=== PATIENT | female | born 1990 | race Two or more races ===

== ENCOUNTER 2020-06-06 13:27 | Emergency (ER) | payer BC, SELFPAY ==
[2020-06-06 13:33] VITALS: BP 118/70; PULSE 120; RESP 18; TEMP 36.4; O2SAT 98; BMI 30.1
--- NOTE | 2020-06-06 16:15 | ED_ITS ---
HPI - Nausea/Vomiting/Diarrhea General Chief complaint: Nausea/Vomiting/Diarrhea Stated complaint: VOMITING Time Seen by Provider: 06/06/20 16:13 Source: patient Mode of arrival: ambulatory Limitations: no limitations History of Present Illness HPI Narrative: Patient's history of cyclical vomiting syndrome usually get this episodes every 2-3 months denies any current use of marijuana been vomiting for last 4 weeks off and on unable to take anything by mouth complaining of diffuse abdominal pain as usual increased anxiety MD elicited complaint: nausea and vomiting Pertinent past history: cyclical vomiting Onset (ago): week(s) (4) Description of vomiting: watery Associated nausea: Yes Associated abdominal pain: Yes Location of pain: diffuse Radiation: diffuse Related Data Previous Rx's Medication Instructions Recorded lorazepam [Ativan] 1 mg PO BID PRN #14 tab 06/06/20 ondansetron 4 mg PO Q6-8H PRN #14 tab 06/06/20 Allergies Allergy/AdvReac Type Severity Reaction Status Date / Time No Known Allergies Allergy Unverified 01/15/20 18:53 [No Known Allergies*] Review of Systems Review of Systems: Yes all other systems are reviewed and are negative Gastrointestinal: Gastrointestinal: Reports nausea PMFSH Past Medical History Medical History Cyclical vomiting Social History Social History Alcohol intake: unknown Smoking Status: Never smoker Use of substances other than those prescribed or required for medical reasons: Unknown Advance Directives: No Advance Directives Information Provided: No Physical Exam Vital Signs: Vital Signs: Last Vital Signs Temp 99 F 06/06/20 19:08 Pulse 106 H 06/06/20 19:08 Resp 16 06/06/20 19:08 BP 105/67 06/06/20 19:08 Pulse Ox 99 06/06/20 19:08 Body Mass Index 30.1 Appearance: Alert. Oriented X3. No acute distress. Eyes: Pupils equal, round and reactive to light. ENT: Pharynx normal. Neck: Normal inspection. Neck supple. CVS: Normal heart rate and rhythm. Pulses normal. Respiratory: No respiratory distress. Breath sounds normal. Abdomen: Soft and nontender. Bowel sounds are present, no mass palpable, no CVA tenderness Skin: Skin warm and dry. Normal skin color. Normal skin turgor. Extremities: No lower extremity edema. Neuro: Oriented X 3. No motor deficit. No sensory deficit. MDM - Nausea/Vomiting/Diarrhea MDM Narrative Medical decision making narrative: Patient has cyclic vomiting syndrome with frequent episodes similar to today feeling much better after Ativan and after IV fluids , patient has leukocytosis secondary to fluid loss/leukemoid reaction no focal tenderness in abdomen will discharge patient home on Ativan and Zofran patient taking p.o. fluids now feeling better Medical Records Attestation: I reviewed the patient's medical records. Lab Data Attestation: I reviewed the patient's lab results. Result diagrams: 06/06/20 16:40 06/06/20 16:40 Labs: Lab Results 06/06/20 06/06/20 06/06/20 Range/Units 16:40 16:40 18:05 WBC 17.2 H (4.8-10.8) X10*3/uL RBC 5.88 H (4.20-5.50) X10*6/uL Hgb 17.7 H (12.0-16.0) g/dl Hct 49.5 H (37-47) % MCV 84.2 (80-98) fL MCH 30.1 (27.0-33.0) pg MCHC 35.8 H (31.0-35.0) g/dl RDW 12.3 (11.0-16.0) % Plt Count 341 (160-400) X10*3/uL MPV 11.6 (9.4-12.3) fL Immature Gran % (Auto) 0.3 (0.0-0.4) % Neut % (Auto) 67.9 (45-73) % Lymph % (Auto) 23.0 (20-40) % [place] % (Auto) 8.2 (2-11) % Eos % (Auto) 0.2 (0-4) % Baso % (Auto) 0.4 (0-2) % Lymph # (Auto) 4.0 (1.2-4.9) X10*3/uL [place] # (Auto) 1.4 H (0.1-1.2) X10*3/uL Eos # (Auto) 0.0 (0.0-0.4) X10*3/uL Baso # (Auto) 0.1 (0.0-0.2) X10*3/uL Abs Immat Gran (auto) 0.06 H (0.00-0.03) X10*3/uL Absolute Neuts (auto) 11.6 H (2.0-8.3) X10*3/uL Absolute Nucleated RBC 0.000 (0.0-0.012) X10*3/uL Nucleated RBC % (auto) 0.0 (0.0-0.2) /100WBC Sodium 138 (135-145) mmol/L Potassium 3.8 (3.3-5.1) mmol/L Chloride 84 L (96-108) mmol/L Carbon Dioxide 34 H (22-29) mmol/L Anion Gap 24 H (12-20) BUN 17 H (9-16) mg/dL Creatinine 0.92 (0.5-1.4) mg/dL Estim Creat Clear Calc 87.0 Estimated GFR > 60 Random Glucose 116 H (60-115) mg/dL Calcium 10.3 H (8.4-10.2) mg/dL Total Bilirubin 0.9 (0.0-1.0) mg/dL Direct Bilirubin 0.3 (0.0-0.5) mg/dL AST 40 H (5-31) U/L ALT 73 H (0-31) U/L Alkaline Phosphatase 88 (39-117) U/L Total Protein 9.3 H (6.5-8.0) g/dL Albumin 5.0 (3.5-5.0) g/dL Lipase 20 (8-78) U/L Urine Color BECKY Urine Appearance CLOUDY Urine pH 5.0 (5.0-8.0) Ur Specific [place] >= 1.030 H (1.005-1.025) Urine Protein 1+ H (NEG-TRACE) MG/DL Urine Glucose (UA) NEG (NEG) MG/DL Urine Ketones 40 (NEG) MG/DL Urine Blood 3+ H (NEG) Urine Nitrite NEG (NEG) Ur Leukocyte Esterase NEG (NEG) Urine RBC 10-14 H (0) /HPF Urine WBC 5-9 H (0-4) /HPF Ur Squamous Epith Cells 2+ /LPF Amorphous Sediment 2+ /LPF Urine Bacteria 2+ /LPF Urine Mucus 1+ /LPF Urine Test NEGATIVE (NEGATIVE) Urine Opiates Screen (Not Detect) Ur Barbiturates Screen (Not Detect) Ur Phencyclidine Scrn (Not Detect) Ur Amphetamines Screen (Not Detect) U Benzodiazepines Scrn (Not Detect) Urine Cocaine Screen (Not Detect) U Marijuana (THC) Screen (Not Detect) 06/06/20 Range/Units 18:05 WBC (4.8-10.8) X10*3/uL RBC (4.20-5.50) X10*6/uL Hgb (12.0-16.0) g/dl Hct (37-47) % MCV (80-98) fL MCH (27.0-33.0) pg MCHC (31.0-35.0) g/dl RDW (11.0-16.0) % Plt Count (160-400) X10*3/uL MPV (9.4-12.3) fL Immature Gran % (Auto) (0.0-0.4) % Neut % (Auto) (45-73) % Lymph % (Auto) (20-40) % [place] % (Auto) (2-11) % Eos % (Auto) (0-4) % Baso % (Auto) (0-2) % Lymph # (Auto) (1.2-4.9) X10*3/uL [place] # (Auto) (0.1-1.2) X10*3/uL Eos # (Auto) (0.0-0.4) X10*3/uL Baso # (Auto) (0.0-0.2) X10*3/uL Abs Immat Gran (auto) (0.00-0.03) X10*3/uL Absolute Neuts (auto) (2.0-8.3) X10*3/uL Absolute Nucleated RBC (0.0-0.012) X10*3/uL Nucleated RBC % (auto) (0.0-0.2) /100WBC Sodium (135-145) mmol/L Potassium (3.3-5.1) mmol/L Chloride (96-108) mmol/L Carbon Dioxide (22-29) mmol/L Anion Gap (12-20) BUN (9-16) mg/dL Creatinine (0.5-1.4) mg/dL Estim Creat Clear Calc Estimated GFR Random Glucose (60-115) mg/dL Calcium (8.4-10.2) mg/dL Total Bilirubin (0.0-1.0) mg/dL Direct Bilirubin (0.0-0.5) mg/dL AST (5-31) U/L ALT (0-31) U/L Alkaline Phosphatase (39-117) U/L Total Protein (6.5-8.0) g/dL Albumin (3.5-5.0) g/dL Lipase (8-78) U/L Urine Color Urine Appearance Urine pH (5.0-8.0) Ur Specific [place] (1.005-1.025) Urine Protein (NEG-TRACE) MG/DL Urine Glucose (UA) (NEG) MG/DL Urine Ketones (NEG) MG/DL Urine Blood (NEG) Urine Nitrite (NEG) Ur Leukocyte Esterase (NEG) Urine RBC (0) /HPF Urine WBC (0-4) /HPF Ur Squamous Epith Cells /LPF Amorphous Sediment /LPF Urine Bacteria /LPF Urine Mucus /LPF Urine Test (NEGATIVE) Urine Opiates Screen Not Detected (Not Detect) Ur Barbiturates Screen Not Detected (Not Detect) Ur Phencyclidine Scrn Not Detected (Not Detect) Ur Amphetamines Screen Not Detected (Not Detect) U Benzodiazepines Scrn Not Detected (Not Detect) Urine Cocaine Screen Not Detected (Not Detect) U Marijuana (THC) Screen POSITIVE H (Not Detect) Discharge Plan Discharge Clinical Impression: Cyclic vomiting syndrome Patient Disposition: Home, Self-Care Instructions: Cyclic Vomiting Syndrome (ED) Prescriptions: New lorazepam [Ativan] 1 mg tablet 1 mg PO BID PRN (Reason: nausea and vomiting) Qty: 14 RF: 0 ondansetron 4 mg tablet,disintegrating 4 mg PO Q6-8H PRN (Reason: nausea and vomiting) Qty: 14 RF: 0 Interventions: ED Discharge Assessment Last Done: 06/06/20 21:09
[2020-06-06 16:44] LABS: MANUAL DIFF FLAG NO
[2020-06-06] MEDS: ondansetron HCL 4 MG/2 ML VIAL IVPUSH (16:50)
[2020-06-06] MEDS: LORazepam 2 MG/ML VIAL 1 MG IVPUSH (16:50)
[2020-06-06] MEDS: 0.9 % Sodium Chloride 1,000 ML 999 ML IVCONT ×2 (16:51→19:10)
[2020-06-06 16:55] VITALS: RESP 18
[2020-06-06 16:55] LABS: Basophils Absolute Auto 0.1 X10*3/uL (0.0-0.2); Basophils Percent Auto 0.4 % (0-2); Eosinophils Percent Auto 0.2 % (0-4); Hematocrit 49.5 % (37-47); Hemoglobin 17.7 g/dl (12.0-16.0); Imm Gran Abs Auto 0.06 X10*3/uL (0.00-0.03); Imm Gran Pct Auto 0.3 % (0.0-0.4); Mean Corpuscular HGB Conc 35.8 g/dl (31.0-35.0); Mean Corpuscular Hemoglobin 30.1 pg (27.0-33.0); Mean Corpuscular Volume 84.2 fL (80-98); Mean Platelet Volume 11.6 fL (9.4-12.3); Monocytes Absolute Auto 1.4 X10*3/uL (0.1-1.2); Monocytes Percent Auto 8.2 % (2-11); Neutrophils Absolute Auto 11.6 X10*3/uL (2.0-8.3); Neutrophils Percent Auto 67.9 % (45-73); Platelet Count 341 X10*3/uL (160-400); Red Blood Count 5.88 X10*6/uL (4.20-5.50); Red Cell Distribution Width 12.3 % (11.0-16.0); White Blood Count 17.2 X10*3/uL (4.8-10.8)
[2020-06-06 17:11] LABS: Alanine Aminotransferase 73 U/L (0-31); Alkaline Phosphatase 88 U/L (39-117); Anion Gap 24 (12-20); Aspartate Amino Transferase 40 U/L (5-31); Bilirubin Direct 0.3 mg/dL (0.0-0.5); Bilirubin Total 0.9 mg/dL (0.0-1.0); Blood Urea Nitrogen 17 mg/dL (9-16); Calcium 10.3 mg/dL (8.4-10.2); Carbon Dioxide 34 mmol/L (22-29); Chloride 84 mmol/L (96-108); Estimated Glomerular Filt Rate > 60; Glucose Random 116 mg/dL (60-115); Lipase 20 U/L (8-78); Potassium 3.8 mmol/L (3.3-5.1); Sodium 138 mmol/L (135-145); Total Protein 9.3 g/dL (6.5-8.0)
--- NOTE | 2020-06-06 18:12 | PC.NURSE ---
pt states pain currently 8/10, nausea has improved. Provided urine sample. Awaiting results.
[2020-06-06 18:18] LABS: Appearance Urine CLOUDY; Color Urine AMBER; Glucose Urine UA NEG (NEG); Leukocyte Esterase Urine NEG (NEG); Nitrite Urine NEG (NEG); Specific Gravity - Urine >= 1.030 (1.005-1.025); Urine Blood 3+ (NEG); Urine Ketones 40 MG/DL (NEG); Urine Protein 1+ MG/DL (NEG-TRACE)
[2020-06-06 18:21] LABS: UPreg QC Valid YES; Urine Pregnancy NEGATIVE (NEGATIVE)
[2020-06-06 18:35] LABS: Amorphous Sediment Urine 2+ /LPF; Bacteria Urine 2+ /LPF; Mucus Urine 1+ /LPF; Squamous Epithelial Cell Urine 2+ /LPF; UACC CULT YES
[2020-06-06 18:48] LABS: Amphetamine Screen Urine Not Detected (Not Detect); Barbiturates, Urine Not Detected (Not Detect); Benzodiazepines Screen Urine Not Detected (Not Detect); Cannabinoid Screen Urine POSITIVE (Not Detect); Cocaine Screen Urine Not Detected (Not Detect); Opiate Screen Urine Not Detected (Not Detect); Phencyclidine Screen Urine Not Detected (Not Detect)
[2020-06-06 19:08] VITALS: BP 105/67; PULSE 106; RESP 16; TEMP 37.2; O2SAT 99
--- NOTE | 2020-06-06 19:42 | PC.NURSE ---
Pt found resting in bed, awake and alert, CAOx4, speaking full sentences. Pt continues reporting pain to LUQ, states it's an 8/10. Pt reports some relief of pain/nausea but states both continue to persist. IVF hung per MAR, VSS. Call rae within reach, continue to monitor.
--- NOTE | 2020-06-06 20:12 | PC.NURSE ---
MD at bedside explaining results and plan of care. Pt provided with juice and crackers to PO challenge.
[2020-06-06 21:20] VITALS: BP 108/62; PULSE 114; RESP 16
== END 2020-06-06 21:29 | disposition home or self-care (01) ==
PROVIDERS: Emergency Provider Internal Medicine
DX: R11.15 Cyclical vomiting syndrome unrelated to migraine (principal); F12.90 Cannabis use, unspecified, uncomplicated
CPT/HCPCS: 36415; 80048; 80076; 80307; 81001; 81025; 83690; 85025; 87086; 96361; 96374; 96375; 99284; J2060; J2405

== ENCOUNTER 2020-11-30 13:54 | Emergency (ER) | payer BC, SELFPAY ==
[2020-11-30 15:26] VITALS: BP 150/66; PULSE 75; RESP 18; TEMP 36.8; O2SAT 98; BMI 32.8
[2020-11-30 15:46] LABS: Glucose Urine UA NEG (NEG); Leukocyte Esterase Urine NEG (NEG); Nitrite Urine NEG (NEG); Specific Gravity - Urine >= 1.030 (1.005-1.025); UACC Culture Trigger NO; Urine Blood TRACE (NEG); Urine Ketones NEG (NEG); Urine Protein NEG (NEG-TRACE)
[2020-11-30 15:54] LABS: Appearance Urine CLEAR; Color Urine YELLOW
[2020-11-30 16:01] LABS: Bacteria Urine TRACE /LPF; RBC Urine 0-2 /HPF (0); Squamous Epithelial Cell Urine TRACE /LPF; WBC Urine 0 /HPF (0-4)
[2020-11-30 17:21] LABS: UPreg QC Valid YES; Urine Pregnancy NEGATIVE (NEGATIVE)
--- NOTE | 2020-11-30 17:56 | ED.ABDPAIN ---
HPI - Abdominal Pain General Chief Complaint: Abdominal Pain <JEROME Jimenez Last Filed: 11/30/20 18:51> Stated Complaint: abd pain <JEROME Jimenez Last Filed: 11/30/20 18:51> Time Seen by Provider: 11/30/20 17:11 <JEROME Jimenez Last Filed: 11/30/20 18:51> Source: patient and family <JEROME Jimenez Last Filed: 11/30/20 18:51> Mode of arrival: ambulatory <JEROME Jimenez Last Filed: 11/30/20 18:51> Limitations: no limitations <JEROME Jimenez Last Filed: 11/30/20 18:51> History of Present Illness HPI narrative: 30-year-old female with a past medical history of cyclical vomiting, gastritis and duodenitis, GERD and anxiety disorder presenting to the ED with complaints of intermittent nausea/vomiting over the past 3 weeks with ?feeling like something is moving in my stomach?. Reports that her last menstrual period was approximately 2 months ago. She reports that in the past when she became she was not positive by urine test she was positive by blood. She denies any fevers, chills, dizziness, headaches, chest pain, shortness of breath, black or bloody emesis, back pain, dysuria, hematuria, abnormal vaginal discharge, diarrhea or constipation or any other symptoms complaints or concerns at this time. <JEROME Jimenez - Last Filed: 11/30/20 18:51> MD elicited complaint: abdominal pain <JEROME Jimenez Last Filed: 11/30/20 18:51> Pertinent past history: other (See above) <JEROME Jimenez Last Filed: 11/30/20 18:51> Onset (ago): week(s) (Three weeks) <JEROME Jimenez Last Filed: 11/30/20 18:51> Pain Consistency: intermittent <JEROME Jimenez Last Filed: 11/30/20 18:51> Location: diffuse <JEROME Jimenez Last Filed: 11/30/20 18:51> Severity: mild <JEROME Jimenez Last Filed: 11/30/20 18:51> Quality: cramping <JEROME Jimenez Last Filed: 11/30/20 18:51> Radiation: none <JEROME Jimenez Last Filed: 11/30/20 18:51> Migration to: no migration <JEROME Jimenez Last Filed: 11/30/20 18:51> Exacerbating factors: nothing <JEROME Jimenez Last Filed: 11/30/20 18:51> Relieving factors: nothing <JEROME Jimenez Last Filed: 11/30/20 18:51> Associated symptoms: nausea, vomiting and other (Has not had a menstrual period in 2 months) <JEROME Jimenez Last Filed: 11/30/20 18:51> Related Data Home Medications: Previous Rx's Medication Instructions Recorded lorazepam 1 mg tablet (Ativan) 1 mg PO BID PRN #14 tab 06/06/20 ondansetron 4 mg disintegrating 4 mg PO Q6-8H PRN #14 tab 06/06/20 tablet <JEROME Jimenez Last Filed: 11/30/20 18:51> Allergies/Adverse Reactions: Allergies Allergy/AdvReac Type Severity Reaction Status Date / Time No Known Allergies Allergy Unverified 01/15/20 18:53 [No Known Allergies*] <JEROME Jimenez Last Filed: 11/30/20 18:51> Review of Systems Review of Systems Constitutional : No Weight loss, No Fever, No Chills, No Night Sweats, No Fatigue, No Malaise ENT/Mouth: No ear pain, No sore throat, No Difficulty swallowing Cardiovascular : No Chest Pain, No SOB, No Dyspnea on Exertion, No Orthopnea, No Edema, No Palpitations Respiratory : No Cough, No Sputum, No Wheezing, No Dyspnea Gastrointestinal : Positive nausea/vomiting/abdominal cramping, No Diarrhea, No blood streaked emesis, No coffee-ground emesis, No gross hematemesis, No blood streak stool, No gross hematochezia, No Melena Genitourinary : No irregular bleeding, No Dysuria, No Urinary Frequency, No Hematuria,No Urinary Incontinence, No Urgency, No Flank Pain Musculoskeletal : No joint pain, No Myalgias, No Joint Swelling Skin : No Skin Lesions, No rash Neuro : No Weakness, No Numbness, No Paresthesias, No Loss of Consciousness, NoDizziness, No Headache Psych : No Social Issues, Heme/Lymph: No Bruising, No Bleeding,No Lymphadenopathy Endocrine : No Polyuria, No Polydipsia, No Temperature Intolerance <JEROME Jimenez - Last Filed: 11/30/20 18:51> Yes all other systems are reviewed and are negative <JEROME Jimenez - Last Filed: 11/30/20 18:51> Physical Exam Vital Signs: Vital Signs: Last Vital Signs Temp 98.7 F 11/30/20 18:35 Pulse 83 11/30/20 18:35 Resp 16 11/30/20 18:35 BP 132/86 11/30/20 18:35 Pulse Ox 99 11/30/20 18:35 Body Mass Index 32.8 vital signs have been reviewed as normal and appeared to be correct. Blood pressure hypertensive 150/66 Heart rate normal. Respiration rate normal. Temperature normal. Oxygen saturation normal. <JEROME Jimenez - Last Filed: 11/30/20 18:51> Vital Signs: Last Vital Signs Temp 98.7 F 11/30/20 18:35 Pulse 83 11/30/20 18:35 Resp 16 11/30/20 18:35 BP 132/86 11/30/20 18:35 Pulse Ox 99 11/30/20 18:35 Body Mass Index 32.8 <JEROME Gaxiola - Last Filed: 11/30/20 19:27> Appearance: Alert. Oriented X3. No acute distress. Head: Normal external exam. Normocephalic. Eyes: PERRLA. EOMI. Conjunctiva and sclera normal. Eyelids normal. ENT: Pharynx normal. Uvula midline. Moist mucous membranes. Neck: Normal inspection. Neck supple. FROM. No adenopathy. No meningeal signs. CVS: Normal heart rate and rhythm. Heart sound normal. No murmurs noted. Pulses normal throughout. Respiratory: No respiratory distress. Painless inspiration. Breath sounds normal. No wheezes/rales/rhonchi noted. Chest nontender. No accessory muscle usage noted or decreased air movement noted. Abdomen: Soft and nontender. Nondistended. No guarding. No rigidity. Bowel sounds normal in all 4 quadrants. No distention noted. No organomegaly noted. No visible injury noted. No rebound tenderness. Negative Rovsing sign. Negative obturator's sign. Negative psoas sign. Negative Phelan sign. Back: No CVA tenderness. Full range of motion noted. Skin: Skin warm and dry. Normal skin color. Normal skin turgor. No rashes/lesions/lacerations noted. Extremities: Extremities exhibit normal range of motion. Extremities nontender. Neuro: Oriented X 3. No motor deficit. No sensory deficit. Reflexes normal. Normal steady gait. <JEROME Jimenez - Last Filed: 11/30/20 18:51> Course Course Course Narrative: 17:45pm - 30-year-old female presenting to the ED with complaints of intermittent nausea/vomiting over the past 3 weeks with ?feeling like something is moving in my stomach?. Reports that her last menstrual period was approximately 2 months ago. She reports that in the past when she became she was not positive by urine test she was positive by blood. UA obtained and no evidence of UTI. Negative for . I explained this to the patient and she is requesting blood test for . Plan: Labs including serum quant and re-evaluate. <JEROME Jimenez - Last Filed: 11/30/20 18:51> Reevaluation(s) Reevaluation #1: Labs still pending. Sign out to ABIOLA Damon <JEROME Jimenez - Last Filed: 11/30/20 18:51> Time: 18:50 <JEROME Jimenez - Last Filed: 11/30/20 18:51> Reevaluation #2: Patient's serum quant came back negative. Patient not in any distress and talking on the bed. Due to patient informed cart in the ED for something was moving in her abdomen with a little bit discomfort and abdominal CT scan was offered, but patient refused and would like to be discharged. <JEROME Gaxiola Last Filed: 11/30/20 19:27> Time: 19:24 <JEROME Gaxiola Last Filed: 11/30/20 19:27> MDM - Abdominal Pain MDM Narrative Medical decision making narrative: Abdominal pain <JEROME Gaxiola Last Filed: 11/30/20 19:27> Medical Records Attestation: I reviewed the patient's medical records. <JEROME Jimenez - Last Filed: 11/30/20 18:51> Lab Data Attestation: I reviewed the patient's lab results. <JEROME Jimenez - Last Filed: 11/30/20 18:51> Result diagrams: : 11/30/20 18:15 11/30/20 18:15 <JEROME Jimenez - Last Filed: 11/30/20 18:51> Labs: Lab Results 11/30/20 11/30/20 11/30/20 Range/Units 15:36 15:36 18:15 WBC 9.2 (4.8-10.8) X10*3/uL RBC 4.94 (4.20-5.50) X10*6/uL Hgb 14.7 (12.0-16.0) g/dl Hct 42.5 (37-47) % MCV 86.0 (80-98) fL MCH 29.8 (27.0-33.0) pg MCHC 34.6 (31.0-35.0) g/dl RDW 13.9 (11.0-16.0) % Plt Count 305 (160-400) X10*3/uL MPV 11.1 (9.4-12.3) fL Immature Gran % (Auto) 0.2 (0.0-0.4) % Neut % (Auto) 60.5 (45-73) % Lymph % (Auto) 31.4 (20-40) % [place] % (Auto) 6.2 (2-11) % Eos % (Auto) 1.4 (0-4) % Baso % (Auto) 0.3 (0-2) % Lymph # (Auto) 2.9 (1.2-4.9) X10*3/uL [place] # (Auto) 0.6 (0.1-1.2) X10*3/uL Eos # (Auto) 0.1 (0.0-0.4) X10*3/uL Baso # (Auto) 0.0 (0.0-0.2) X10*3/uL Abs Immat Gran (auto) 0.02 (0.00-0.03) X10*3/uL Absolute Neuts (auto) 5.6 (2.0-8.3) X10*3/uL Absolute Nucleated RBC 0.000 (0.0-0.012) X10*3/uL Nucleated RBC % (auto) 0.0 (0.0-0.2) /100WBC Sodium (135-145) mmol/L Potassium (3.3-5.1) mmol/L Chloride (96-108) mmol/L Carbon Dioxide (22-29) mmol/L Anion Gap (12-20) BUN (9-16) mg/dL Creatinine (0.5-1.4) mg/dL Estim Creat Clear Calc Estimated GFR Random Glucose (60-115) mg/dL Calcium (8.4-10.2) mg/dL Beta HCG, Quant mIU/mL Urine Color YELLOW Urine Appearance CLEAR Urine pH 6.0 (5.0-8.0) Ur Specific [place] >= 1.030 H (1.005-1.025) Urine Protein NEG (NEG-TRACE) MG/DL Urine Glucose (UA) NEG (NEG) MG/DL Urine Ketones NEG (NEG) MG/DL Urine Blood TRACE (NEG) Urine Nitrite NEG (NEG) Ur Leukocyte Esterase NEG (NEG) Urine RBC 0-2 (0) /HPF Urine WBC 0 (0-4) /HPF Ur Squamous Epith Cells TRACE /LPF Urine Bacteria TRACE /LPF Urine Test NEGATIVE (NEGATIVE) 11/30/20 Range/Units 18:15 WBC (4.8-10.8) X10*3/uL RBC (4.20-5.50) X10*6/uL Hgb (12.0-16.0) g/dl Hct (37-47) % MCV (80-98) fL MCH (27.0-33.0) pg MCHC (31.0-35.0) g/dl RDW (11.0-16.0) % Plt Count (160-400) X10*3/uL MPV (9.4-12.3) fL Immature Gran % (Auto) (0.0-0.4) % Neut % (Auto) (45-73) % Lymph % (Auto) (20-40) % [place] % (Auto) (2-11) % Eos % (Auto) (0-4) % Baso % (Auto) (0-2) % Lymph # (Auto) (1.2-4.9) X10*3/uL [place] # (Auto) (0.1-1.2) X10*3/uL Eos # (Auto) (0.0-0.4) X10*3/uL Baso # (Auto) (0.0-0.2) X10*3/uL Abs Immat Gran (auto) (0.00-0.03) X10*3/uL Absolute Neuts (auto) (2.0-8.3) X10*3/uL Absolute Nucleated RBC (0.0-0.012) X10*3/uL Nucleated RBC % (auto) (0.0-0.2) /100WBC Sodium 139 (135-145) mmol/L Potassium 4.4 (3.3-5.1) mmol/L Chloride 103 D (96-108) mmol/L Carbon Dioxide 27 (22-29) mmol/L Anion Gap 13 (12-20) BUN 11 (9-16) mg/dL Creatinine 0.75 (0.5-1.4) mg/dL Estim Creat Clear Calc 111.5 Estimated GFR > 60 Random Glucose 95 (60-115) mg/dL Calcium 10.1 (8.4-10.2) mg/dL Beta HCG, Quant < 2 mIU/mL Urine Color Urine Appearance Urine pH (5.0-8.0) Ur Specific [place] (1.005-1.025) Urine Protein (NEG-TRACE) MG/DL Urine Glucose (UA) (NEG) MG/DL Urine Ketones (NEG) MG/DL Urine Blood (NEG) Urine Nitrite (NEG) Ur Leukocyte Esterase (NEG) Urine RBC (0) /HPF Urine WBC (0-4) /HPF Ur Squamous Epith Cells /LPF Urine Bacteria /LPF Urine Test (NEGATIVE) <JEROME Jimenez - Last Filed: 11/30/20 18:51> Lab Results 11/30/20 11/30/20 11/30/20 Range/Units 15:36 15:36 18:15 WBC 9.2 (4.8-10.8) X10*3/uL RBC 4.94 (4.20-5.50) X10*6/uL Hgb 14.7 (12.0-16.0) g/dl Hct 42.5 (37-47) % MCV 86.0 (80-98) fL MCH 29.8 (27.0-33.0) pg MCHC 34.6 (31.0-35.0) g/dl RDW 13.9 (11.0-16.0) % Plt Count 305 (160-400) X10*3/uL MPV 11.1 (9.4-12.3) fL Immature Gran % (Auto) 0.2 (0.0-0.4) % Neut % (Auto) 60.5 (45-73) % Lymph % (Auto) 31.4 (20-40) % [place] % (Auto) 6.2 (2-11) % Eos % (Auto) 1.4 (0-4) % Baso % (Auto) 0.3 (0-2) % Lymph # (Auto) 2.9 (1.2-4.9) X10*3/uL [place] # (Auto) 0.6 (0.1-1.2) X10*3/uL Eos # (Auto) 0.1 (0.0-0.4) X10*3/uL Baso # (Auto) 0.0 (0.0-0.2) X10*3/uL Abs Immat Gran (auto) 0.02 (0.00-0.03) X10*3/uL Absolute Neuts (auto) 5.6 (2.0-8.3) X10*3/uL Absolute Nucleated RBC 0.000 (0.0-0.012) X10*3/uL Nucleated RBC % (auto) 0.0 (0.0-0.2) /100WBC Sodium (135-145) mmol/L Potassium (3.3-5.1) mmol/L Chloride (96-108) mmol/L Carbon Dioxide (22-29) mmol/L Anion Gap (12-20) BUN (9-16) mg/dL Creatinine (0.5-1.4) mg/dL Estim Creat Clear Calc Estimated GFR Random Glucose (60-115) mg/dL Calcium (8.4-10.2) mg/dL Beta HCG, Quant mIU/mL Urine Color YELLOW Urine Appearance CLEAR Urine pH 6.0 (5.0-8.0) Ur Specific [place] >= 1.030 H (1.005-1.025) Urine Protein NEG (NEG-TRACE) MG/DL Urine Glucose (UA) NEG (NEG) MG/DL Urine Ketones NEG (NEG) MG/DL Urine Blood TRACE (NEG) Urine Nitrite NEG (NEG) Ur Leukocyte Esterase NEG (NEG) Urine RBC 0-2 (0) /HPF Urine WBC 0 (0-4) /HPF Ur Squamous Epith Cells TRACE /LPF Urine Bacteria TRACE /LPF Urine Test NEGATIVE (NEGATIVE) 11/30/20 Range/Units 18:15 WBC (4.8-10.8) X10*3/uL RBC (4.20-5.50) X10*6/uL Hgb (12.0-16.0) g/dl Hct (37-47) % MCV (80-98) fL MCH (27.0-33.0) pg MCHC (31.0-35.0) g/dl RDW (11.0-16.0) % Plt Count (160-400) X10*3/uL MPV (9.4-12.3) fL Immature Gran % (Auto) (0.0-0.4) % Neut % (Auto) (45-73) % Lymph % (Auto) (20-40) % [place] % (Auto) (2-11) % Eos % (Auto) (0-4) % Baso % (Auto) (0-2) % Lymph # (Auto) (1.2-4.9) X10*3/uL [place] # (Auto) (0.1-1.2) X10*3/uL Eos # (Auto) (0.0-0.4) X10*3/uL Baso # (Auto) (0.0-0.2) X10*3/uL Abs Immat Gran (auto) (0.00-0.03) X10*3/uL Absolute Neuts (auto) (2.0-8.3) X10*3/uL Absolute Nucleated RBC (0.0-0.012) X10*3/uL Nucleated RBC % (auto) (0.0-0.2) /100WBC Sodium 139 (135-145) mmol/L Potassium 4.4 (3.3-5.1) mmol/L Chloride 103 D (96-108) mmol/L Carbon Dioxide 27 (22-29) mmol/L Anion Gap 13 (12-20) BUN 11 (9-16) mg/dL Creatinine 0.75 (0.5-1.4) mg/dL Estim Creat Clear Calc 111.5 Estimated GFR > 60 Random Glucose 95 (60-115) mg/dL Calcium 10.1 (8.4-10.2) mg/dL Beta HCG, Quant < 2 mIU/mL Urine Color Urine Appearance Urine pH (5.0-8.0) Ur Specific [place] (1.005-1.025) Urine Protein (NEG-TRACE) MG/DL Urine Glucose (UA) (NEG) MG/DL Urine Ketones (NEG) MG/DL Urine Blood (NEG) Urine Nitrite (NEG) Ur Leukocyte Esterase (NEG) Urine RBC (0) /HPF Urine WBC (0-4) /HPF Ur Squamous Epith Cells /LPF Urine Bacteria /LPF Urine Test (NEGATIVE) <JEROME Gaxiola - Last Filed: 11/30/20 19:27> Discharge Plan Discharge Clinical Impression: Abdominal pain <JEROME Jimenez - Last Filed: 11/30/20 18:51> Patient Disposition: Home, Self-Care <JEROME Jimenez - Last Filed: 11/30/20 18:51> Instructions: Abdominal Pain (ED) <JEROME Jimenez - Last Filed: 11/30/20 18:51> Additional Instructions: Return to the ED for worsening abdominal pain, nausea, vomiting, fever, chills, flank pain, dysuria, hematuria, or any other concerning symptoms. Please follow-up with PCP <JEROME Jimenez - Last Filed: 11/30/20 18:51> Prescriptions: No Action lorazepam [Ativan] 1 mg tablet 1 mg PO BID PRN (Reason: nausea and vomiting) Qty: 14 RF: 0 ondansetron 4 mg tablet,disintegrating 4 mg PO Q6-8H PRN (Reason: nausea and vomiting) Qty: 14 RF: 0 <JEROME Jimenez Last Filed: 11/30/20 18:51> Stand Alone Forms: Work/School Release <JEROME Jimenez Last Filed: 11/30/20 18:51> Print Language: Korean <JEROME Jimenez - Last Filed: 11/30/20 18:51> [facility] Past Medical History Attestation statement: The following information was validated with the patient. <JEROME Jimenez - Last Filed: 11/30/20 18:51> Medical History: Medical History Cyclical vomiting <JEROME Jimenez - Last Filed: 11/30/20 18:51> Surgical History: Surgical History History of section History of esophagogastroduodenoscopy (EGD) <JEROME Jimenez - Last Filed: 11/30/20 18:51> Social History Social History: Social History Alcohol intake: unknown Patient Tobacco Use Status: Tobacco use Unknown Smoked in Last 30 Days: No Use of substances other than those prescribed or required for medical reasons: Unknown Advance Directives: No Advance Directives Information Provided: No <JEROME Jimenez - Last Filed: 11/30/20 18:51>
[2020-11-30 18:20] LABS: MANUAL DIFF FLAG NO
[2020-11-30 18:35] VITALS: BP 132/86; PULSE 83; RESP 16; TEMP 37.1; O2SAT 99
[2020-11-30] MEDS: Ondansetron ODT 4 MG TAB.RAPDIS TRANSLINGU (18:41)
[2020-11-30 18:49] LABS: Anion Gap 13 (12-20); Blood Urea Nitrogen 11 mg/dL (9-16); Calcium 10.1 mg/dL (8.4-10.2); Carbon Dioxide 27 mmol/L (22-29); Chloride 103 mmol/L (96-108); Creatinine Clr Calc Pharmacy 111.5; Estimated Glomerular Filt Rate > 60; Glucose Random 95 mg/dL (60-115); Potassium 4.4 mmol/L (3.3-5.1); Sodium 139 mmol/L (135-145)
[2020-11-30 18:53] LABS: Basophils Percent Auto 0.3 % (0-2); Eosinophils Absolute Auto 0.1 X10*3/uL (0.0-0.4); Eosinophils Percent Auto 1.4 % (0-4); Hematocrit 42.5 % (37-47); Hemoglobin 14.7 g/dl (12.0-16.0); Imm Gran Abs Auto 0.02 X10*3/uL (0.00-0.03); Imm Gran Pct Auto 0.2 % (0.0-0.4); Lymphocytes Absolute Auto 2.9 X10*3/uL (1.2-4.9); Lymphocytes Percent Auto 31.4 % (20-40); Mean Corpuscular HGB Conc 34.6 g/dl (31.0-35.0); Mean Corpuscular Hemoglobin 29.8 pg (27.0-33.0); Mean Platelet Volume 11.1 fL (9.4-12.3); Monocytes Absolute Auto 0.6 X10*3/uL (0.1-1.2); Monocytes Percent Auto 6.2 % (2-11); Neutrophils Absolute Auto 5.6 X10*3/uL (2.0-8.3); Neutrophils Percent Auto 60.5 % (45-73); Platelet Count 305 X10*3/uL (160-400); Red Blood Count 4.94 X10*6/uL (4.20-5.50); Red Cell Distribution Width 13.9 % (11.0-16.0); White Blood Count 9.2 X10*3/uL (4.8-10.8)
[2020-11-30 18:57] LABS: HCG Quantitative < 2 mIU/mL
== END 2020-11-30 19:43 | disposition home or self-care (01) ==
PROVIDERS: Physician Assistant Medical; Emergency Provider Emergency Medicine Emergency Medical Services
DX: R10.9 Unspecified abdominal pain (principal); R11.2 Nausea with vomiting, unspecified; F41.1 Generalized anxiety disorder; F43.0 Acute stress reaction; Z79.899 Other long term (current) drug therapy
CPT/HCPCS: 36415; 80048; 81001; 81025; 84702; 85025; 99284

== ENCOUNTER 2023-08-15 16:48 | Emergency (ER) | payer MEDICAID, SELFPAY ==
--- NOTE | ~2023-08-15 | XR_ITS ---
EXAMINATION: XR CHEST CLINICAL INFORMATION: Cough and chest pain COMPARISON: None available. TECHNIQUE: 2 views of the chest were obtained. FINDINGS: No significant abnormality is noted involving the heart, lungs, mediastinum, bony thorax or soft tissues. XR/XR chest 2V IMPRESSION: Unremarkable examination.
[2023-08-15 16:53] VITALS: BP 158/92; PULSE 114; O2SAT 96
[2023-08-15 17:13] VITALS: BP 133/90; PULSE 123; RESP 18; TEMP 37.2; O2SAT 95; BMI 34.4
--- NOTE | 2023-08-15 17:15 | ED_ITS ---
HPI - General Adult General Chief complaint: Upper Respiratory Symptoms Stated complaint: cough, nausea, vomiting, fevers, dizziness, weakne Time Seen by Provider: 08/15/23 19:13 Source: patient Mode of arrival: EMS Limitations: no limitations History of Present Illness HPI narrative: 33-year-old female with a history of diabetes mellitus, GERD, anxiety, cyclic vomiting syndrome, cocaine use disorder who presents emergency department for evaluation of nausea, vomiting, cough, body aches, headache, weakness inability to eat or drink or take her medications. Patient states she has been sick for approximately 2 weeks. She states that it started with sinus congestion and nasal congestion. She then developed nausea and vomiting. She states she has not been able to hold down food or fluid for least 3-4 days. She states she has body aches and muscle aches. She had a subjective fever and chills. She has had a cough which is nonproductive. She has chest pain with cough. She would urinary frequency with no dysuria. She is complaining of lower abdominal pain which is intermittent, cramping which is moderate to severe in intensity. Related Data Previous Rx's ?Medication ?Instructions ?Recorded lorazepam 1 mg tablet (Ativan) 1 mg PO BID PRN nausea and 06/06/20 vomiting #14 tabs ondansetron 4 mg disintegrating 4 mg PO Q6-8H PRN nausea and 06/06/20 tablet vomiting #14 tabs morphine 15 mg immediate release 15 mg PO Q4-6H PRN pain #14 tabs 08/15/23 tablet ondansetron 4 mg disintegrating 4 mg PO Q6-8H PRN nausea and 08/15/23 tablet vomiting #14 tabs Allergies Allergy/AdvReac Type Severity Reaction Status Date / Time No Known Allergies Allergy Verified 08/15/23 17:16 [No Known Allergies*] Review of Systems 2 Review of Systems: Yes all other systems are reviewed and are negative [facility] Past Medical History [facility] Narrative: Social history: She does smoke cigarettes. She occasionally drinks 1 glass of wine per week, she denies drug use. Medical History Cyclical vomiting Surgical History History of section History of esophagogastroduodenoscopy (EGD) Social History Social History Alcohol intake: unknown Patient Tobacco Use Status: Tobacco use Unknown Advance Directives: No Advance Directives Information Provided: No Physical Exam ED Vital Signs: Vital Signs - 24 hr 08/15/23 17:13 Temperature 99.0 F Pulse Rate 123 H Respiratory Rate 18 Blood Pressure 133/90 H Pulse Oximetry 95 Oxygen Delivery Method Room Air BMI result Body Mass Index 34.4 Vital signs revealed an elevated heart rate of 123 and elevated blood pressure of 133/90 Exam: General: Awake, alert in no distress Head: Normocephalic, atraumatic EENT: PERRL, Lids normal, sclera normal, conjunctiva normal, nose normal , ears normal, throat without erythema or exudates Neck: Supple, no adenopathy Lung: breath sounds symmetric, no wheezing, rales or rhonchi Chest: symmetric movement, nontender Heart: regular rate and rhythm, normal S1, S2 no murmurs or rubs Abdomen: soft, moderate lower abdominal tenderness, mild diffuse tenderness, normoactive bowel sounds, no rebound Back: no vertebral tenderness, no CVAT Extremities: no deformities, moves all extremities symmetrically Neuro: Awake, alert, oriented, normal speech, cranial nerves intact, moves all extremities symmetrically Psych: Pleasant, cooperative Course Course Course Narrative: RME:?33 yo female hx t2dm here w/ cough, myalgias, weakness, BRAMBILA, nausea, vomiting x2 wks. no sick contacts. labs, viral serology, cxr ordered. Full HPI, ROS and PE to be performed by the primary ED provider. Medications Administered Discontinued Medications Generic Name Dose Route Start Last Admin Trade Name Freq PRN Reason Stop Dose Admin Sodium Chloride 1,000 mls @ 999 mls/hr 08/15/23 19:27 08/15/23 21:00 Ns IV 08/15/23 20:27 Infused .Q1H1M STA Infusion Insulin Human Regular 5 unit 08/15/23 19:27 08/15/23 19:36 Insulin Regular, Human 100 Unit/Ml 3 Ml Vial IVPUSH 08/15/23 19:28 5 unit ONCE ONE Administration Ketorolac Tromethamine 15 mg 08/15/23 19:27 08/15/23 19:36 Ketorolac Tromethamine 15 Mg/Ml Vial IVPUSH 08/15/23 19:28 15 mg ONCE STA Administration Ondansetron HCl 4 mg 08/15/23 18:09 08/15/23 18:10 Ondansetron Odt 4 Mg Tab.Rapdis TRANSLINGU 08/15/23 18:10 4 mg ONCE ONE Administration Ondansetron HCl 4 mg 08/15/23 19:27 08/15/23 19:36 Ondansetron Hcl 4 Mg/2 Ml Vial IVPUSH 08/15/23 19:28 4 mg ONCE ONE Administration Medical Decision Making Medical Decision Making [facility] Narrative: 33-year-old female with a history of diabetes mellitus, GERD, anxiety, cyclic vomiting syndrome, cocaine use disorder who presents emergency department for evaluation of nausea, vomiting, cough, body aches, headache, weakness inability to eat or drink or take her medications x2 weeks. Vital signs did reveal an elevated heart rate and elevated blood pressure. Exam did reveal lower abdominal tenderness otherwise was unremarkable. Differential diagnosis: ?Includes but is not limited to viral syndrome, cyclic vomiting syndrome, anemia, electrolyte abnormalities, COVID-19, influenza, RSV Following evaluation was ordered: CBC, CMP, VBG, quantitative beta-hCG, lipase, magnesium, PT/INR, beta hydroxybutyrate, COVID-19, influenza, RSV Patient was initially treated with the following: Normal saline IV x2 L, regular insulin 5 units IV, Toradol 15 mg IV Zofran 4 mg IV Course: 19:33 My interpretation patient's laboratory evaluation as follows: Elevated white blood count 21,700 with 80% neutrophils. Elevated BUN of 20 with normal creatinine 0.85. Elevated glucose 426. Elevated total protein 9.6. Elevated AST 32. Lipase normal. COVID-19, influenza and RSV were negative. Venous blood gas revealed an elevated pH of 7.48 with a CO2 of 43 and in a bicarb of 33-patient does not have significant acidosis based on the VBG. was below detectable limits. Beta hydroxybutyrate elevated at 0 0.97. 21:33 At this time I believe the patient's symptoms are secondary to a viral syndrome. Patient did feel slightly better after the above treatment. However she still having abdominal pain and nausea. Patient was treated with morphine 4 mg IV, Reglan 10 mg IV and Benadryl 50 mg IV. She states that she has Aleve at home and she will take this for her pain, for pain not relieved by believes she was prescribed morphine. She was also given prescription for Zofran 4 mg ODT every 6 hours as needed for nausea and vomiting. Admission/Observation Consideration of admission/observation: Escalation of care including admission/observation considered Lab Data [facility] Lab Attestation statement: I reviewed the patient's lab results. 08/15/23 18:02 08/15/23 18:02 Labs: Lab Results 08/15/23 08/15/23 08/15/23 Range/Units 18:02 18:42 18:47 WBC 21.7 H (4.8-10.8) X10*3/uL RBC 5.92 H (4.20-5.50) X10*6/uL Hgb 17.2 H (12.0-16.0) g/dl Hct 49.5 H (37.0-47.0) % MCV 83.6 (80.0-98.0) fL MCH 29.1 (27.0-33.0) pg MCHC 34.7 (31.0-35.0) g/dl RDW 13.3 (11.0-16.0) % Plt Count 358 (160-400) X10*3/uL MPV 11.2 (9.4-12.3) fL Immature Gran % (Auto) 0.5 H (0.0-0.4) % Neut % (Auto) 80.2 H (45-73) % Lymph % (Auto) 14.1 L (20-40) % [place] % (Auto) 5.0 (2-11) % Eos % (Auto) 0.0 (0-4) % Baso % (Auto) 0.2 (0-2) % Lymph # (Auto) 3.1 (1.2-4.9) X10*3/uL [place] # (Auto) 1.1 (0.1-1.2) X10*3/uL Eos # (Auto) 0.0 (0.0-0.4) X10*3/uL Baso # (Auto) 0.1 (0.0-0.2) X10*3/uL Abs Immat Gran (auto) 0.11 H (0.00-0.03) X10*3/uL Absolute Neuts (auto) 17.4 H (2.0-8.3) x10*3/uL Absolute Nucleated RBC 0.000 (0.0-0.012) X10*3/uL Nucleated RBC % (auto) 0.0 (0.0-0.2) /100WBC PT 13.7 H (11.1-13.3) SEC INR 1.1 (0.9-1.1) VBG pH (7.32-7.43) VBG pCO2 mmHg VBG pO2 mmHg VBG HCO3 (22-26) mmol/L VBG O2 Saturation % VBG Base Excess mmol/L Sodium 137 (135-145) mmol/L Potassium 3.9 (3.3-5.1) mmol/L Chloride 96 (96-108) mmol/L Carbon Dioxide 27 (22-29) mmol/L Anion Gap 18 (12-20) BUN 29 H (9-16) mg/dL Creatinine 0.85 (0.5-1.4) mg/dL Estim Creat Clear Calc 98.1 Estimated GFR > 60 POC Glucose 394 H* (60-115) mg/dL Random Glucose 426 H* (60-115) mg/dL Osmolality 317 H (281-305) mosm/kg Calcium 10.7 H (8.4-10.2) mg/dL Magnesium 2.5 (1.6-2.6) mg/dL Total Bilirubin 0.5 (0.0-1.0) mg/dL AST 18 (5-31) U/L ALT 32 H (0-31) U/L Alkaline Phosphatase 116 (39-117) U/L Total Protein 9.6 H (6.5-8.0) g/dL Albumin 4.8 (3.5-5.0) g/dL Lipase 37 (8-78) U/L Beta-Hydroxybutyrate 0.97 H (0.02-0.27) mmol/L Beta HCG, Quant < 2 mIU/mL Influenza Type A (PCR) NEGATIVE (Negative) Influenza Type B (PCR) NEGATIVE (Negative) RSV RNA Qual (PCR) NEGATIVE (Negative) SARS-CoV-2 RNA (RT-PCR) NEGATIVE (Negative) 08/15/23 Range/Units 18:52 WBC (4.8-10.8) X10*3/uL RBC (4.20-5.50) X10*6/uL Hgb (12.0-16.0) g/dl Hct (37.0-47.0) % MCV (80.0-98.0) fL MCH (27.0-33.0) pg MCHC (31.0-35.0) g/dl RDW (11.0-16.0) % Plt Count (160-400) X10*3/uL MPV (9.4-12.3) fL Immature Gran % (Auto) (0.0-0.4) % Neut % (Auto) (45-73) % Lymph % (Auto) (20-40) % [place] % (Auto) (2-11) % Eos % (Auto) (0-4) % Baso % (Auto) (0-2) % Lymph # (Auto) (1.2-4.9) X10*3/uL [place] # (Auto) (0.1-1.2) X10*3/uL Eos # (Auto) (0.0-0.4) X10*3/uL Baso # (Auto) (0.0-0.2) X10*3/uL Abs Immat Gran (auto) (0.00-0.03) X10*3/uL Absolute Neuts (auto) (2.0-8.3) x10*3/uL Absolute Nucleated RBC (0.0-0.012) X10*3/uL Nucleated RBC % (auto) (0.0-0.2) /100WBC PT (11.1-13.3) SEC INR (0.9-1.1) VBG pH 7.48 H (7.32-7.43) VBG pCO2 43 mmHg VBG pO2 75 mmHg VBG HCO3 33 H (22-26) mmol/L VBG O2 Saturation 96.0 % VBG Base Excess 8.4 mmol/L Sodium (135-145) mmol/L Potassium (3.3-5.1) mmol/L Chloride (96-108) mmol/L Carbon Dioxide (22-29) mmol/L Anion Gap (12-20) BUN (9-16) mg/dL Creatinine (0.5-1.4) mg/dL Estim Creat Clear Calc Estimated GFR POC Glucose (60-115) mg/dL Random Glucose (60-115) mg/dL Osmolality (281-305) mosm/kg Calcium (8.4-10.2) mg/dL Magnesium (1.6-2.6) mg/dL Total Bilirubin (0.0-1.0) mg/dL AST (5-31) U/L ALT (0-31) U/L Alkaline Phosphatase (39-117) U/L Total Protein (6.5-8.0) g/dL Albumin (3.5-5.0) g/dL Lipase (8-78) U/L Beta-Hydroxybutyrate (0.02-0.27) mmol/L Beta HCG, Quant mIU/mL Influenza Type A (PCR) (Negative) Influenza Type B (PCR) (Negative) RSV RNA Qual (PCR) (Negative) SARS-CoV-2 RNA (RT-PCR) (Negative) Independent Interpretation I performed an independent interpretation of an: Plain X-Ray Interpretation: My independent interpretation of the patient's 2 chest x-ray is as follows: No acute disease Radiology Impression Discussion of test interpretation with radiology: I have reviewed the radiologist's reading. Radiologist Impression: XR chest 2V IMPRESSION: Unremarkable examination. Dictated By: Dyan Ceja MD Prescription Management I considered prescription management with: Pain Medication (Morphine) and Other (Antiemetic, Zofran ODT) Discharge Plan Discharge Clinical Impression: Viral syndrome, Acute hyperglycemia, Acute dehydration, Abdominal pain Patient Disposition: Home, Self-Care Instructions: Viral Syndrome (ED) Additional Instructions: At this time I believe that your symptoms are caused by a virus. Your white blood cell count was elevated. Your blood glucose level was also elevated at 426, this is related to your viral illness, dehydration and not being able to take your metformin. Increase your fluid intake to try to prevent dehydration Take Aleve 1 pills every 12 hours as needed for pain. Take Tylenol (acetaminophen) 2 pills every 6 hours as needed for pain. For pain not relieved by Aleve or Tylenol take morphine 15 mg pills, 1 pill every 6 hours as needed for pain. This medication will make you sleepy, do not drive or work while taking this medication. Morphine is a narcotic medication and can be addicting. If you are concerned about addiction you can ask the pharmacist for less pills or do not get this prescription filled. Take Zofran ODT 4 mg pills, 1 pill dissolved in your mouth every 8 hours as needed for nausea and vomiting. For the next 24 hours, stay on a SUMI diet (bananas, rice, applesauce, tea and toast). Follow-up with your doctor in 2 days. Please return to the emergency department if your symptoms get worse or if you develop any symptoms that are concerning to you. Prescriptions: New morphine 15 mg tablet 15 mg PO Q4-6H PRN (Reason: pain) Qty: 14 0RF Rx Instructions: Patient may request partial fill; Partial Fill upon patient request. ondansetron 4 mg tablet,disintegrating 4 mg PO Q6-8H PRN (Reason: nausea and vomiting) Qty: 14 0RF No Action lorazepam [Ativan] 1 mg tablet 1 mg PO BID PRN (Reason: nausea and vomiting) Qty: 14 0RF ondansetron 4 mg tablet,disintegrating 4 mg PO Q6-8H PRN (Reason: nausea and vomiting) Qty: 14 0RF Print Language: Kazakh
--- NOTE | 2023-08-15 18:06 | MHC.EDTECH ---
PATIENT BLOOD DRAWN AND RSV/COVID SWAB COLLECTED AND SENT TO LAB .
[2023-08-15 18:08] LABS: MANUAL DIFF FLAG NO
[2023-08-15 18:10] LABS: Basophils Absolute Auto 0.1 X10*3/uL (0.0-0.2); Basophils Percent Auto 0.2 % (0-2); Hematocrit 49.5 % (37.0-47.0); Hemoglobin 17.2 g/dl (12.0-16.0); Imm Gran Abs Auto 0.11 X10*3/uL (0.00-0.03); Imm Gran Pct Auto 0.5 % (0.0-0.4); Lymphocytes Absolute Auto 3.1 X10*3/uL (1.2-4.9); Lymphocytes Percent Auto 14.1 % (20-40); Mean Corpuscular HGB Conc 34.7 g/dl (31.0-35.0); Mean Corpuscular Hemoglobin 29.1 pg (27.0-33.0); Mean Corpuscular Volume 83.6 fL (80.0-98.0); Mean Platelet Volume 11.2 fL (9.4-12.3); Monocytes Absolute Auto 1.1 X10*3/uL (0.1-1.2); Neutrophils Absolute Auto 17.4 x10*3/uL (2.0-8.3); Neutrophils Percent Auto 80.2 % (45-73); Platelet Count 358 X10*3/uL (160-400); Red Blood Count 5.92 X10*6/uL (4.20-5.50); Red Cell Distribution Width 13.3 % (11.0-16.0); White Blood Count 21.7 X10*3/uL (4.8-10.8)
[2023-08-15] MEDS: Ondansetron ODT 4 MG TAB.RAPDIS TRANSLINGU (18:10)
[2023-08-15 18:13] LABS: INTERNATIONAL NORM RATIO 1.1 (0.9-1.1); Prothrombin Time 13.7 SEC (11.1-13.3)
[2023-08-15 18:32] LABS: Alanine Aminotransferase 32 U/L (0-31); Albumin Level 4.8 g/dL (3.5-5.0); Alkaline Phosphatase 116 U/L (39-117); Anion Gap 18 (12-20); Aspartate Amino Transferase 18 U/L (5-31); Bilirubin Total 0.5 mg/dL (0.0-1.0); Blood Urea Nitrogen 29 mg/dL (9-16); Calcium 10.7 mg/dL (8.4-10.2); Carbon Dioxide 27 mmol/L (22-29); Chloride 96 mmol/L (96-108); Creatinine Clr Calc Pharmacy 98.1; Estimated Glomerular Filt Rate > 60; Glucose Random 426 mg/dL (60-115); Lipase 37 U/L (8-78); Magnesium 2.5 mg/dL (1.6-2.6); Potassium 3.9 mmol/L (3.3-5.1); Sodium 137 mmol/L (135-145); Total Protein 9.6 g/dL (6.5-8.0)
[2023-08-15 18:36] LABS: HCG Quantitative < 2 mIU/mL
[2023-08-15 18:52] LABS: Influenza A PCR NEGATIVE (Negative); Influenza B PCR NEGATIVE (Negative); Resp Syncy Virus RNA Qual PCR NEGATIVE (Negative); SARS COV2 PCR INHOUSE NEGATIVE (Negative)
[2023-08-15 18:58] LABS: Glucose, Whole Blood 394 mg/dL (60-115)
[2023-08-15 18:59] LABS: Venous Blood Gas Refer to POC result
[2023-08-15 18:59] LABS: VBG Base Excess 8.4 mmol/L; VBG HCO3 33 mmol/L (22-26); VBG pCO2 43 mmHg; VBG pH 7.48 (7.32-7.43); VBG pO2 75 mmHg
[2023-08-15 19:05] LABS: Osmolality, Serum 317 mosm/kg (281-305)
--- NOTE | 2023-08-15 19:11 | PC.NURSE ---
Assumed care of pt. Pt lying on stretcher, endorsing generalized pain and nausea. Pt labs as documented, notifying provider of concerns
[2023-08-15] MEDS: 0.9 % Sodium Chloride 1,000 ML 999 ML IV (19:36)
[2023-08-15] MEDS: Insulin Regular, Human 100 UNIT/ML 3 ML VIAL IVPUSH (19:36)
[2023-08-15] MEDS: Ketorolac Tromethamine 15 MG/ML VIAL IVPUSH (19:36)
[2023-08-15] MEDS: ondansetron HCL 4 MG/2 ML VIAL IVPUSH (19:36)
[2023-08-15 20:13] LABS: Beta-Hydroxybutyrate 0.97 mmol/L (0.02-0.27)
[2023-08-15] MEDS: Morphine Sulfate 4 MG/ML CARTRIDGE IVPUSH (21:40)
[2023-08-15] MEDS: diphenhydrAMINE HCL 50 MG/ML VIAL IVPUSH (21:40)
[2023-08-15] MEDS: Metoclopramide HCl 10 MG/2 ML VIAL IVPUSH (21:40)
[2023-08-15 22:08] VITALS: BP 100/61; PULSE 116; RESP 16; TEMP 37.3; O2SAT 93
[2023-08-15 22:47] VITALS: BP 108/68; PULSE 99; RESP 18; TEMP 36.8; O2SAT 97
== END 2023-08-15 22:48 | disposition home or self-care (01) ==
PROVIDERS: Physician Assistant Medical; Emergency Provider Emergency Medicine Emergency Medical Services
DX: B34.9 Viral infection, unspecified (principal); E11.65 Type 2 diabetes mellitus with hyperglycemia; E86.0 Dehydration; R07.89 Other chest pain; R05.9 Cough, unspecified; R11.2 Nausea with vomiting, unspecified; R10.30 Lower abdominal pain, unspecified; Z11.52 Encounter for screening for COVID-19; Z20.822 Contact with and (suspected) exposure to COVID-19
CPT/HCPCS: 0241U; 36415; 71046; 80053; 82010; 82803; 82947; 83690; 83735; 83930; 84702; 85025; 85610; 96361; 96374; 96375; 99284; 99285; J1200; J1885; J2270; J2405; J2765

== ENCOUNTER 2023-10-02 10:37 | Emergency (ER) | payer OTHER, SELFPAY ==
[2023-10-02 10:48] VITALS: BP 116/68; PULSE 100; RESP 16; TEMP 36.9; O2SAT 97; BMI 31.3
== END 2023-10-02 14:26 | disposition left against medical advice (07) ==
LOC: HO.ED 13:38
PROVIDERS: Emergency Provider Emergency Medicine
DX: R19.00 Intra-abdominal and pelvic swelling, mass and lump, unspecified site (principal); Z53.21 Procedure and treatment not carried out due to patient leaving prior to being seen by health care provider
CPT/HCPCS: 99281